=== PATIENT | female | born 1980 | race Caucasian/White ===

== ENCOUNTER 2018-08-09 17:18 | Emergency (ER) | payer MEDICAID, OTHER ==
[~2018-08-09] VITALS: Ht 157.5 cm; Wt 74.1 kg
[2018-08-09 17:30] VITALS: BP 128/80
[2018-08-09 18:00] VITALS: BP 128/80
[2018-08-09] MEDS ORDERED: KETOROLAC 60 MG/2 ML VIAL IM ONE (18:25)
[2018-08-09 20:07] LABS: BASOPHILS # (AUTO) 0.1 K/uL (0.00-0.22); BASOPHILS % (AUTO) 0.8 % (0.0-2.0); EOSINOPHILS # (AUTO) 0.1 K/uL (0-0.4); HEMOGLOBIN 13.8 g/dL (12.0-16.0); LYMPHOCYTES # (AUTO) 1.1 K/uL (2.5-16.5); LYMPHOCYTES % (AUTO) 14.8 % (20.5-51.1); MEAN CORPUSCULAR HEMOGLOBIN 29 pg (27-31); MEAN CORPUSCULAR HGB CONC 34 g/dL (33-37); MEAN CORPUSCULAR VOLUME 84.9 fL (80-94); MONOCYTES # (AUTO) 0.5 K/uL (0.8-1.0); MONOCYTES % (AUTO) 7.2 % (1.7-9.3); NEUTROPHILS # (AUTO) 5.4 K/uL (1.8-7.7); NEUTROPHILS % (AUTO) 75.2 % (42.2-75.2); PLATELET COUNT (AUTO) 224 K/uL (140-450); RED BLOOD CELL COUNT(AUTO) 4.82 MIL/uL (4.20-5.40); WHITE BLOOD COUNT (AUTO) 7.2 K/uL (4.8-10.8)
[2018-08-09 20:31] LABS: ANION GAP 9.7 (8-16); CREATININE 0.7 mg/dL (0.6-1.3); POTASSIUM 3.7 mmol/L (3.5-5.1)
[2018-08-09 20:38] LABS: TOTAL BILIRUBIN 0.4 mg/dL (0.0-1.0)
[2018-08-09 20:44] LABS: CREATINE KINASE MB 0.5 ng/mL (0-3.6)
== END 2018-08-09 21:25 | disposition home or self-care (01) ==
LOC: MED 17:18
DX: R51 Headache (principal); R55 Syncope and collapse; R42 Dizziness and giddiness
CPT/HCPCS: 36415; 71045; 80053; 81025; 82550; 82553; 84484; 85025; 93005; 96372; 99285; J1885; Q0092

== ENCOUNTER 2021-02-16 15:18 | Emergency (ER) | payer MEDICAID ==
[~2021-02-16] VITALS: Ht 160 cm; Wt 77.1 kg
[2021-02-16 15:34] VITALS: BP 137/75
[2021-02-16] MEDS ORDERED: LIDOCAINE MPF 1% 10 MG/ML VIAL INJ ONE (15:45)
[2021-02-16] MEDS ORDERED: IBUPROFEN 600 MG TAB PO ONE (15:45)
[2021-02-16] MEDS ORDERED: IBUP-2213 PO (16:13)
[2021-02-16] MEDS ORDERED: CEPH500T PO (16:13)
[2021-02-16 16:29] VITALS: BP 137/75
== END 2021-02-16 16:30 | disposition home or self-care (01) ==
LOC: MED 15:18
DX: S61.101A Unspecified open wound of right thumb with damage to nail, initial encounter (principal); Z79.899 Other long term (current) drug therapy; W45.8XXA Other foreign body or object entering through skin, initial encounter; Y93.89 Activity, other specified; Y92.89 Other specified places as the place of occurrence of the external cause; Y99.8 Other external cause status
CPT/HCPCS: 12001; 90471; 90715; 99283; J2001

== ENCOUNTER 2021-02-18 11:19 | Emergency (ER) | payer MEDICAID ==
[~2021-02-18] VITALS: Ht 154.9 cm; Wt 77.1 kg
[~2021-02-18 11:19] MED LIST: CEPH500T PO; IBUP-2213 PO
[2021-02-18 11:27] VITALS: BP 122/86
--- NOTE | 2021-02-18 12:10 | NUR ---
PT PLACED IN BED 12 AT THIS TIME
--- NOTE | 2021-02-18 12:15 | NUR ---
40 YEAR OLD FEMALE COMPLAINS OF RIGHT HAND PAIN, WANTED TO DO RECHECK AT ER. PT AOX4, BREATHING EVEN AND UNLABORED, SKIN WARM AND DRY. BED IN LOWEST POSITION, LOCKED, BED RAIL UPX1. PMH - DENIES ALLERGIES - NKA
--- NOTE | 2021-02-18 12:18 | NUR ---
EMT CLEANING WOUND AND DRESSING AT BEDSIDE
--- NOTE | 2021-02-18 12:19 | NUR ---
PT FINGER WOUND SOAKED WITH WARM WATER AND BETADINE
--- NOTE | 2021-02-18 12:30 | NUR ---
PT WOUND DRESSED WITH XEROFORM GAUZE PAD AND NON ADHERENT PAD THEN WRAPPED WITH 2" GAUZE ROLL AND KERLIX TAPE, [facility] BEFORE AND AFTER. ERMD NOTIFIED
[2021-02-18 13:10] VITALS: BP 122/86
--- NOTE | 2021-02-18 13:10 | NUR ---
Patient discharged with v/s stable. Written and verbal after care instructions given and explained. Patient verbalized understanding. Ambulatory with steady gait. All questions addressed prior to discharge. Advised to follow up with PMD.
== END 2021-02-18 13:10 | disposition home or self-care (01) ==
LOC: MED 11:19
DX: S61.011D Laceration without foreign body of right thumb without damage to nail, subsequent encounter (principal); X58.XXXD Exposure to other specified factors, subsequent encounter; Z79.899 Other long term (current) drug therapy
CPT/HCPCS: 99282

== ENCOUNTER 2021-02-21 14:33 | Emergency (ER) | payer MEDICAID ==
[~2021-02-21] VITALS: Ht 157.5 cm; Wt 80.3 kg
[2021-02-21 14:56] VITALS: BP 118/78
--- NOTE | 2021-02-21 15:25 | NUR ---
Patient ambulated to bed 4 with family. RN evaluating the patient at bedside.
[2021-02-21 16:18] VITALS: BP 118/78
== END 2021-02-21 16:18 | disposition home or self-care (01) ==
LOC: MED 14:33
DX: S61.011D Laceration without foreign body of right thumb without damage to nail, subsequent encounter (principal); Z79.899 Other long term (current) drug therapy; X58.XXXD Exposure to other specified factors, subsequent encounter
CPT/HCPCS: 99281